=== PATIENT | female | born 1970 | race Caucasian/White ===

== ENCOUNTER 2022-05-18 11:20 | Outpatient (CLI) | payer OTHER, SELFPAY ==
[2022-05-18 13:21] LABS: Cholesterol* 234 mg/dL (90-199)
[2022-05-18 13:22] LABS: HDL Cholesterol* 105 mg/dL (>=50); LDL Cholesterol Calculated 116 mg/dL (<100); Triglycerides* 63 mg/dL (40-149)
[2022-05-18 13:48] LABS: Hepatitis B Surface Antigen* Negative (Negative)
[2022-05-18 13:58] LABS: HIV 1/2/P24 Combo Screen* Negative (Negative)
[2022-05-18 14:06] LABS: Hepatitis C Virus Antibody* Negative (Negative)
[2022-05-18 14:58] LABS: Chlamydia DNA Amplified* NOT DETECTED (No Detected); GC DNA Amplified* NOT DETECTED (No Detected)
[2022-05-18 16:32] LABS: Glucose* 89 mg/dL (60-115)
[2022-05-20 00:32] LABS: Rapid Plasma Reagin (RPR) Non Reactive (Non Reactive)
== END 2022-05-18 11:21 | disposition home or self-care (01) ==
PROVIDERS: Visit Provider Registered Nurse
DX: Z01.419 Encounter for gynecological examination (general) (routine) without abnormal findings (principal); Z11.3 Encounter for screening for infections with a predominantly sexual mode of transmission; Z13.6 Encounter for screening for cardiovascular disorders; Z13.9 Encounter for screening, unspecified; Z11.4 Encounter for screening for human immunodeficiency virus [HIV]; Z83.49 Family history of other endocrine, nutritional and metabolic diseases
CPT/HCPCS: 80061; 82947; 84443; 86592; 86703; 86706; 86803; 87340; 87491; 87591; 87624; 88175